=== PATIENT | male | born 1970 | race Caucasian/White ===

== ENCOUNTER 2023-08-31 07:33 | Outpatient (CLI) | payer OTHER, SELFPAY | END 2023-08-31 07:34 | disposition home or self-care (01) | LOC: INJ CL 07:36 | PROVIDERS: PCP Physician Assistant; Visit Provider Family Medicine | DX: M54.16 Radiculopathy, lumbar region (principal); M51.36 Other intervertebral disc degeneration, lumbar region | CPT/HCPCS: 62323; J0702; Q9966 ==

== ENCOUNTER 2023-11-23 13:26 | Outpatient (CLI) | payer BC, SELFPAY | END 2023-11-23 13:27 | disposition home or self-care (01) | LOC: INJ CL 13:27 | PROVIDERS: PCP Physician Assistant; Visit Provider Family Medicine | DX: M54.16 Radiculopathy, lumbar region (principal); M51.36 Other intervertebral disc degeneration, lumbar region | CPT/HCPCS: 64483; J1100; Q9966 ==

== ENCOUNTER 2024-01-08 08:11 | Outpatient (CLI) | payer BC, SELFPAY | END 2024-01-08 08:12 | disposition home or self-care (01) | LOC: INJ CL 08:14 | PROVIDERS: PCP Physician Assistant; Visit Provider Family Medicine | DX: M54.16 Radiculopathy, lumbar region (principal); M51.36 Other intervertebral disc degeneration, lumbar region | CPT/HCPCS: 64483; J0702; Q9966 ==

== ENCOUNTER 2024-05-02 12:02 | Emergency (ER) | payer BC, SELFPAY ==
[2024-05-02 12:04] VITALS: BP 127/59; PULSE 75; RESP 18; TEMP 36.6; O2SAT 97; BMI 50.4
--- NOTE | 2024-05-02 12:16 | ED_ITS ---
HPI - General Adult General Chief complaint: Back Injury/Pain Stated complaint: Back pain Time Seen by Provider: 05/02/24 12:15 History of Present Illness HPI narrative: Known [id number] issue, had an accident in May which made the pain worse, also has sciatic nerve issues. Has had cortisone injection by [facility] here which helped. Has had MRI and CT. Recently at [facility] Rx oral steroid & oxy, oxy just isn't helping. Less pain lying on L side. Hx colon cancer. For surgery was told to lose weight first, has considered gastric bypass. Has some appt to have nerves burned 54-year-old man presenting to the emergency department with complaint of sharp and aching radiating pain through his right hip buttock area down the back of his thigh and feeling like he has stabbed in the right calf with pain continuing to just about the ankle. Underlying lumbar disc problems with repeat accident. History of steroid injections for which were helpful in the past. I did leave briefly. Finds himself lying on his left side to improved discomfort. Has an appointment for evaluation for ablation. No fever. No noted swelling. Reviewing limited records was seen this last week in local emergency department and given some oxycodone along with methylprednisolone. Related Data Home Medications ?Medication ?Instructions ?Recorded ?Confirmed atorvastatin 40 mg tablet 40 mg PO DAILY 05/02/24 05/02/24 celecoxib 200 mg capsule mg PO 05/02/24 glipizide 2.5 mg tablet, extended 2.5 mg PO DAILY 05/02/24 05/02/24 release 24 hr hydroxyzine HCl 25 mg tablet 25 mg PO 3XD 05/02/24 05/02/24 metformin 500 mg tablet 1,000 mg PO BID 05/02/24 05/02/24 methylprednisolone 4 mg tablets in mg DIRECTED 05/02/24 a dose pack oxycodone 5 mg tablet 5 mg PO Q4H PRN pain 05/02/24 05/02/24 pioglitazone 15 mg tablet 15 mg PO DAILY 05/02/24 05/02/24 pioglitazone 30 mg tablet 30 mg PO DAILY 05/02/24 05/02/24 sertraline 25 mg tablet 25 mg PO DAILY 05/02/24 05/02/24 tizanidine 2 mg tablet 4 mg PO Q6H PRN muscle spasm 05/02/24 05/02/24 Previous Rx's ?Medication ?Instructions ?Recorded oxycodone-acetaminophen 5 mg-325 1 - 2 tab PO Q4H PRN pain #12 tabs 05/02/24 mg tablet (Percocet) prednisone 20 mg tablet 20 mg PO DAILY #17 tabs 05/02/24 Allergies Allergy/AdvReac Type Severity Reaction Status Date / Time No Known Drug Allergies Allergy Verified 05/02/24 12:38 Review of Systems Status of ROS: Reports: 6 or more systems reviewed and unremarkable except as noted in History and below PFSH PFS Social History Smoking Status: Never smoker How often do you have a drink containing alcohol: monthly or less AUDIT-C Alcohol total score: 1 Non-prescribed substance use: denies use Exam Narrative: Exam Narrative: Very pleasant. Clearly uncomfortable. Worse with transitions. Prefers to sit or lean to his left. Skin is warm and dry without swelling or erythema. Does not demonstrate great deal of pain to palpation over the low back or buttock. Straight leg raise is positive on the right. Maybe a little hyper reflexive on the right patellar tendon versus the left. Good strength to flexion of the right thigh. Const: Vital Signs, click to edit/add: Vital Signs - 24 hr 05/02/24 12:04 Temperature 97.9 F Pulse Rate [Left P ulse Oximeter] 75 Respiratory Rate 18 Blood Pressure [Ri ght Forearm] 127/59 L Pulse Oximetry 97 Oxygen Delivery Me thod Room Air Documenting provider has reviewed patient's vital signs: yes Course Vital Signs Vital signs: Initial Vital Signs Temperature 97.9 F 05/02/24 12:04 Temperature Source Temporal Artery Scan 05/02/24 12:04 Pulse Rate 75 05/02/24 12:04 Respiratory Rate 18 05/02/24 12:04 Blood Pressure 127/59 L 05/02/24 12:04 Blood Pressure Mean 81 05/02/24 12:04 Blood Pressure Position Left Lateral 05/02/24 12:04 Pulse Oximetry 97 05/02/24 12:04 Oxygen Delivery Method Room Air 05/02/24 12:04 Vital Signs Temperature 97.9 F 05/02/24 12:04 Pulse Rate 75 05/02/24 12:04 Respiratory Rate 18 05/02/24 12:04 Blood Pressure 127/59 L 05/02/24 12:04 Pulse Oximetry 97 05/02/24 12:04 Oxygen Delivery Method Room Air 05/02/24 12:04 Temperature 97.9 F 05/02/24 12:04 Pulse Rate 75 05/02/24 12:04 Respiratory Rate 18 05/02/24 12:04 Blood Pressure 127/59 L 05/02/24 12:04 Pulse Oximetry 97 05/02/24 12:04 Oxygen Delivery Method Room Air 05/02/24 12:04 Medications Administered Medications: Discontinued Medications Generic Name Dose Route Start Last Admin Trade Name Bea PRN Reason Stop Dose Admin Hydromorphone HCl 1 mg 05/02/24 12:31 05/02/24 12:54 Hydromorphone 0.5 Mg/0.5 Ml Inj IVP 05/02/24 12:32 1 mg ONCE ONE Administration Hydroxyzine Pamoate 25 mg 05/02/24 12:31 05/02/24 12:52 Hydroxyzine Pamoate 25 Mg Capsule PO 05/02/24 12:32 25 mg ONCE ONE Administration Ketorolac Tromethamine 30 mg 05/02/24 12:31 05/02/24 12:54 Ketorolac 30 Mg/Ml Inj IVP 05/02/24 12:32 30 mg ONCE ONE Administration Prednisone 60 mg 05/02/24 12:31 05/02/24 12:52 Prednisone 20 Mg Tablet PO 05/02/24 12:32 60 mg ONCE ONE Administration Medical Decision Making MDM Narrative Medical decision making narrative: Extremely uncomfortable here. Known diagnosis. I think it has gotten out of control. No red flags otherwise. Current medication that he has had available including oxycodone was not helping. I would like to break this pain for him. Given injection of hydromorphone and ketorolac. Hydroxyzine orally. Also initiating on prednisone. On reassessment is clearly improved and relieved. Today I do discuss this case with Dr. Rashid who is going to try to get him into an appointment shortly. Mr. Daugherty is not sure he can make it to his appointment for ablation which as I understand actually is more for evaluation. He understands that an injection in his back might set his case back by week or to but he has received temporary relief with injections before and would like to have that done. See patient discharge plan for further discussion Medical Records Medical records reviewed: Yes I reviewed the patient's medical records Discharge Plan Discharge Clinical Impression: Lumbar disc disease with radiculopathy, Pain Patient Disposition: Home w/ Parent or Adult Condition: Improved Additional Instructions: Can continue taking medications as prescribed. The tiny pain pills that you got from the ER are oxycodone 5 mg. The ones you got from your doctor are 5 mg of oxycodone combined with 325 mg of acetaminophen -- one of the brand names of this combination is Percocet. I am prescribing more of these for you. Keep staying well hydrated and taking your senna to keep bowels moving on the days that you are taking oxycodone. Do not forget your fruits and vegetables. You have tizanidine as a ?muscle relaxer? -- tends to make people tired. You have celecoxib as an anti-inflammatory pain medication. You have methylprednisolone as a steroid. I am proposing stopping this and switching to prednisone. I will prescribe some prednisone. All these medications can be combined. You can continue to take up to 1000 mg of acetaminophen per does; just remember that each tablet of Percocet contains 325 mg of acetaminophen. You also have hydroxyzine which you noted was for anxiety. With dosings of oxycodone you can take the hydroxyzine as well; it can help with the effectiveness of opiate pain relief When you get a big flare of pain you may need 10 mg at least in a dosing of oxycodone to settle it down as opposed to the 1 tab I think you were taking. I have discussed your case with Dr. Rashid today. I would anticipate a call from him or his clinic on Sunday to try to schedule a repeat injection or he will try to facilitate you getting it sooner elsewhere. Prescriptions: New prednisone 20 mg tablet 20 mg PO DAILY Qty: 17 1RF Rx Instructions: Take 60 mg daily for 3 days then 40 mg daily for 4 days oxycodone-acetaminophen [Percocet] 5-325 mg tablet 1 - 2 tab PO Q4H PRN (Reason: pain) Qty: 12 0RF No Action celecoxib 200 mg capsule PO pioglitazone 15 mg tablet 15 mg PO DAILY atorvastatin 40 mg tablet 40 mg PO DAILY metformin 500 mg tablet 1,000 mg PO BID tizanidine 2 mg tablet 4 mg PO Q6H PRN (Reason: muscle spasm) glipizide 2.5 mg tablet extended release 24hr 2.5 mg PO DAILY sertraline 25 mg tablet 25 mg PO DAILY hydroxyzine HCl 25 mg tablet 25 mg PO 3XD methylprednisolone 4 mg tablets,dose pack DIRECTED pioglitazone 30 mg tablet 30 mg PO DAILY oxycodone 5 mg tablet 5 mg PO Q4H PRN (Reason: pain) Follow Up/Referrals: Janey Reeder PA-C [Primary Care Provider] - Stand Alone Forms: [facility] Info Instructions
[2024-05-02] MEDS: predniSONE 20 MG TABLET 60 MG PO (12:52)
[2024-05-02] MEDS: hydrOXYzine pamoate 25 MG CAPSULE PO (12:52)
[2024-05-02] MEDS: HYDROmorphone 0.5 mg/0.5 ml inj 1 MG IVP (12:54)
[2024-05-02] MEDS: KETOROLAC 30 MG/ML inj IVP (12:54)
== END 2024-05-02 13:54 | disposition home or self-care (01) ==
PROVIDERS: Emergency Provider Family Medicine; PCP Physician Assistant
DX: M51.16 Intervertebral disc disorders with radiculopathy, lumbar region (principal)
CPT/HCPCS: 96374; 96375; 99284; A9270; J1170; J1885; J7512

== ENCOUNTER 2024-06-10 18:06 | Emergency (ER) | payer BC, SELFPAY ==
[2024-06-10 18:08] VITALS: BP 115/75; PULSE 78; RESP 22; TEMP 36.6; O2SAT 98; BMI 49.1
--- NOTE | 2024-06-10 18:24 | ED_ITS ---
HPI - General Adult General Time Seen by Provider: 18:24 Date Seen: 06/10/24 Chief complaint: Back Injury/Pain Stated complaint: back pain Time Seen by Provider: 06/10/24 18:18 Source: patient and RN notes reviewed Mode of arrival: ambulatory Limitations: no limitations History of Present Illness HPI narrative: This 54-year-old male is coming in with low back pain that is going into his right buttock and somewhat down his right thigh but stops above the knee. He reports that he had surgery on his back on May 22. He was initially evaluated in [place], went to [place] to have the procedure done. It sounds as if he had a radiofrequency ablation done in his lumbar spine. He feels he was originally doing good. Sunday he started to develop some low back pain and pain into the upper buttocks area while standing at work. Sunday he rested mostly. Sunday he rolled in bed and felt like something moved in his back. His back pain became extreme. He feels in the right buttock area and in the right thigh area. He has some numbness on the right thigh but he is not noting any definite motor weakness. He has absolutely no loss of control of bowel or bladder. There is no perineal anesthesia, states scrotum and penis feel normal. He states he feels best when he flexes his knee and puts his heel in the right buttock area. He has had no fevers or chills, no night sweats, has not felt ill. He has had long history of back issues per report. Patient does report he is diabetic when ask him. He has been using some Celebrex. He has 1 Percocet left in his pill bottle, states he originally was just taking half tab and now has went up to a full pill, does not seem like it is completely helping. He also has hydroxyzine. Related Data Home Medications ?Medication ?Instructions ?Recorded ?Confirmed atorvastatin 40 mg tablet 40 mg PO DAILY 05/02/24 06/10/24 celecoxib 200 mg capsule mg PO 05/02/24 glipizide 2.5 mg tablet, extended 2.5 mg PO DAILY 05/02/24 06/10/24 release 24 hr hydroxyzine HCl 25 mg tablet 25 mg PO 3XD 05/02/24 06/10/24 metformin 500 mg tablet 1,000 mg PO BID 05/02/24 06/10/24 pioglitazone 15 mg tablet 15 mg PO DAILY 05/02/24 05/02/24 pioglitazone 30 mg tablet 30 mg PO DAILY 05/02/24 06/10/24 tizanidine 2 mg tablet 4 mg PO Q6H PRN muscle spasm 05/02/24 06/10/24 Previous Rx's ?Medication ?Instructions ?Recorded oxycodone-acetaminophen 5 mg-325 1 - 2 tab PO Q4H PRN pain #12 tabs 05/02/24 mg tablet (Percocet) Allergies Allergy/AdvReac Type Severity Reaction Status Date / Time No Known Drug Allergies Allergy Verified 06/10/24 18:14 Review of Systems Narrative: As per HPI. PFS PFS Social History Smoking Status: Never smoker How often do you have a drink containing alcohol: monthly or less AUDIT-C Alcohol total score: 1 Non-prescribed substance use: denies use Exam Const: Vital Signs, click to edit/add: Vital Signs - 24 hr 06/10/24 18:08 Temperature 97.9 F Pulse Rate [Pulse Oximeter] 78 Respiratory Rate 22 Blood Pressure [Ri ght Upper Arm] 115/75 Pulse Oximetry 98 Oxygen Delivery Me thod Room Air This 54-year-old male is lying on his left side on the bed in exam room 1. He is alert, interactive, no apparent distress but looks like he is uncomfortable. Sclera clear, able speak in complete sentences. He has normal light touch sensation when I palpate throughout his extremities. His strength throughout both of his lower extremities are 5/5 and symmetric through the toes, ankles with both plantar and dorsiflexion, he can fully flex and extend his left knee and has 5/5 strength throughout the knee. He has negative straight leg raising along this right leg. He has no midline tenderness of his spine, note no erythema or any prior site from where he had the radiofrequency ablation done. I cannot palpate any sciatic notch tenderness but body habitus of this patient may preclude that. Neurovascular is intact on examination. Patient did ambulate in. Documenting provider has reviewed patient's vital signs: yes Course Course ED Course: Will obtain CT imaging of his lumbar spine, reviewed with him that I cannot do MRI at this time, there is no tech that is trained in this at this time in the evening. Will get some baseline labs. Will look up his clinic creatinine to see if I can give him a dose of Toradol. Creatinine was 0.81 on 04/16/2020 for with an estimated GFR of greater than 90. Do note that this patient looks to have a history of colon cancer in his chart as well. Thus, I do feel even more inclined to do imaging. Reevaluation(s) Time of Reevaluation #1: 20:08 Reevaluation #1: Patient has his right leg flexed at the knee, foot up against his buttock. Finds this to be a position of comfort. He states the Toradol initially helped but the pain is coming back. Did provide him his CT report, there is no evidence of any complication on this. We reviewed his white count is elevated but C-reactive protein normal. He has had no fevers, there is no site erythema, he is not having any night sweats, does not feel ill. This is simply just inc reased pain. Thus, will initiate prednisone, give him some pain pills as he only has 1 Percocet left, will give 4 tablets of oxycodone, Flexeril and the prednisone course from [facility]. We discussed he absolutely needs to follow up with his primary care provider tomorrow, possibly Dr. Krueger as well as let his pain clinic or the person who performed this procedure know that he is having complications. Vital Signs Vital signs: Initial Vital Signs Temperature 97.9 F 06/10/24 18:08 Temperature Source Temporal Artery Scan 06/10/24 18:08 Pulse Rate 78 06/10/24 18:08 Respiratory Rate 22 06/10/24 18:08 Blood Pressure 115/75 06/10/24 18:08 Blood Pressure Mean 88 06/10/24 18:08 Blood Pressure Position Sitting 06/10/24 18:08 Pulse Oximetry 98 06/10/24 18:08 Oxygen Delivery Method Room Air 06/10/24 18:08 Vital Signs Temperature 97.9 F 06/10/24 18:08 Pulse Rate 78 06/10/24 18:08 Respiratory Rate 22 06/10/24 18:08 Blood Pressure 115/75 06/10/24 18:08 Pulse Oximetry 98 06/10/24 18:08 Oxygen Delivery Method Room Air 06/10/24 18:08 Temperature 97.9 F 06/10/24 18:08 Pulse Rate 78 06/10/24 18:08 Respiratory Rate 22 06/10/24 18:08 Blood Pressure 115/75 06/10/24 18:08 Pulse Oximetry 98 06/10/24 18:08 Oxygen Delivery Method Room Air 06/10/24 18:08 Medications Administered Medications: Discontinued Medications Generic Name Dose Route Start Last Admin Trade Name Freq PRN Reason Stop Dose Admin Ketorolac Tromethamine 30 mg 06/10/24 18:44 06/10/24 19:13 Ketorolac 30 Mg/Ml Inj IM 06/10/24 18:45 30 mg ONCE ONE Administration Medical Decision Making Lab Data Lab results reviewed: Yes I reviewed the patient's lab results Labs: Lab Results 06/10/24 Range/Units 19:23 WBC 17.33 H (4.50-11.00) K/uL RBC 4.78 (4.30-5.90) m/uL Hgb 14.1 (13.5-17.5) gm/dL Hct 43.3 (37.0-53.0) % MCV 91 (80-100) fL MCH 30 (26-34) pg MCHC 33 (32-36) gm/dL RDW Coeff of Billy 13.2 (11.5-15.5) % Plt Count 294 (140-440) K/uL Neut % (Auto) 78.2 H (42.0-72.0) % Lymph % (Auto) 13.7 L (20-44) % Grainger % (Auto) 5.9 (0.0-11.0) % Eos % (Auto) 1.6 (0.0-7.0) % Baso % (Auto) 0.3 (0.0-3.0) % Neut # (Auto) 13.60 H (1.7-7.0) K/uL Lymph # (Auto) 2.40 (0.90-2.90) K/uL Grainger # (Auto) 1.00 H (0.00-0.90) K/UL Eos # (Auto) 0.30 (0.00-0.50) K/uL Baso # (Auto) 0.10 (0.00-0.30) K/uL Abs Immat Gran (auto) 0.10 (0.00-0.30) K/uL Imm/Tot Granulo (auto) 0.3 % Sodium 139 (135-149) mmol/L Potassium 3.3 L (3.6-5.1) mmol/L Chloride 108 (96-114) mmol/L Carbon Dioxide 25 (20-32) mmol/L Anion Gap 6 L (7-15) mEq/L BUN 11 (7-30) mg/dL Creatinine 0.5 (0.5-1.5) mg/dL Estimated Creat Clear 145.21 Estimated GFR 120 ml/min Glucose 150 H (60-115) mg/dL Calcium 8.9 (8.4-10.6) mg/dL C-Reactive Protein 1.1 H (0.5-1.0) mg/dL Imaging Data CT- Other: Attestation: I have reviewed the pertinent imaging results. Radiologist's impression: Patient: JINA MAHARAJ Facility:?[facility] Patient ID:?[id number] Site Patient ID:?[id number]. Site :?[id number] Study:?CT-Spine Lumbar W/O-06/10/2024 7:17:16 PM Ordering Physician:ENEIDA Final Report: INDICATION: Increased back pain. Right leg pain. History of colon cancer. COMPARISON: None. TECHNIQUE: Noncontrast CT lumbar spine. FINDINGS: Mild lumbar curve convex the left. In sagittal plane, trace degenerate retrolisthesis of L5 on S1 measures approximately 4 mm. No acute fractures. No vertebral body loss of height. No fractures of the visualized lower ribs. No sacral fractures. No lytic or sclerotic osseous lesions. Lumbar spondylosis with multilevel disc degeneration facet arthropathy. T12-L1: No spinal canal or neural foraminal narrowing. L1-2: Disc degeneration. Diffuse disc bulge. Mild narrowing of spinal canal. Mild narrowing of bilateral foramina. Prominent ventral bridging osteophyte. L2-3: Disc degeneration. Loss disc height. Vacuum disc. Posterior disc osteophyte complex with [id number] narrowing of spinal canal. Mild narrowing of bilateral foramina. Mild facet arthropathy. L3-4: Posterior disc bulge. Mild narrowing of spinal canal. Mild narrowing of the right neural foramen. No narrowing of the left neural foramen. L4-5: Posterior disc bulge. Combined with ligament flavum and facet hypertrophy, there is moderate severe narrowing of the spinal canal. Potential impingement of the traversing L5 nerve roots bilaterally. Moderate narrowing of bilateral foramina. Moderate facet arthropathy. L5-S1: Disc degeneration posterior disc bulge. No narrowing of spinal canal. No impingement of the traversing S1 nerve roots. Moderate narrowing of bilateral foramina. Mild facet arthropathy. Degenerative changes of the SI joints. No presacral edema inflammation. Scattered vascular calcifications. IMPRESSION: 1. Trace lumbar curve convex the left. Trace degenerative retrolisthesis of L5 on S1. 2. No acute fractures. 3. No lytic or sclerotic osseous lesions. 4. Lumbar spondylosis 5. At L2-3, mild to moderate narrowing of the spinal canal. Mild narrowing of the bilateral neural foramina 6. At L4-5, moderate to severe narrowing of the spinal canal. Potential impingement of the traversing L5 nerve roots. Moderate narrowing of the bilateral neural foramina 7. At L5-S1, moderate narrowing of the bilateral neural foramina Please note that all CT scans at this facility use dose modulation, iterative reconstruction, and/or weight-based dosing when appropriate to reduce radiation dose to as low as reasonably achievable. Dictated by Nilo Swan MD @ 06/10/2024 7:38:25 PM (Electronic Signature) Discharge Plan Discharge Clinical Impression: Lumbar radiculopathy Patient Disposition: Home, Self-Care Condition: Stable Instructions: Lumbar Radiculopathy (ED) Additional Instructions: Start prednisone, 20 mg twice a day x5 days, take with food. This may very well increase your sugars, can talk to her primary care doctor if your sugars are going significantly high. Have written for Flexeril which is a muscle relaxant, do not recommend driving while on this. The Flexeril will be 10 mg up to 3 times a day as needed, 15 prescribed. Will provide a small prescription of oxycodone, follow instructions. With oxycodone, can use Tylenol separately, recommend a 1000 mg 3 times a day for pain. Can still stay on the Celebrex. You need to contact your clinic tomorrow as well as the provider whom performed your procedure. If you do develop fevers, have concerns as outlined in the handout, do recommend re-evaluation. Activity Level: Activity as Tolerated Discharge Diet: Diabetic Prescriptions: No Action celecoxib 200 mg capsule PO pioglitazone 15 mg tablet 15 mg PO DAILY atorvastatin 40 mg tablet 40 mg PO DAILY metformin 500 mg tablet 1,000 mg PO BID tizanidine 2 mg tablet 4 mg PO Q6H PRN (Reason: muscle spasm) glipizide 2.5 mg tablet extended release 24hr 2.5 mg PO DAILY hydroxyzine HCl 25 mg tablet 25 mg PO 3XD pioglitazone 30 mg tablet 30 mg PO DAILY oxycodone-acetaminophen [Percocet] 5-325 mg tablet 1 - 2 tab PO Q4H PRN (Reason: pain) Qty: 12 0RF Follow Up/Referrals: Janey Reeder PA-C [Primary Care Provider] - Stand Alone [facility] Info Instructions
--- NOTE | 2024-06-10 18:44 | CT_ITS ---
Patient: JINA MAHARAJ Facility:?[facility] Patient ID:?[id number] Site Patient ID:?[id number]. Site :?[id number] Study:?CT-Spine Lumbar W/O-06/10/2024 7:17:16 PM Ordering Physician:ENEIDA Final Report: INDICATION: Increased back pain. Right leg pain. History of colon cancer. COMPARISON: None. TECHNIQUE: Noncontrast CT lumbar spine. FINDINGS: Mild lumbar curve convex the left. In sagittal plane, trace degenerate retrolisthesis of L5 on S1 measures approximately 4 mm. No acute fractures. No vertebral body loss of height. No fractures of the visualized lower ribs. No sacral fractures. No lytic or sclerotic osseous lesions. Lumbar spondylosis with multilevel disc degeneration facet arthropathy. T12-L1: No spinal canal or neural foraminal narrowing. L1-2: Disc degeneration. Diffuse disc bulge. Mild narrowing of spinal canal. Mild narrowing of bilateral foramina. Prominent ventral bridging osteophyte. L2-3: Disc degeneration. Loss disc height. Vacuum disc. Posterior disc osteophyte complex with [id number] narrowing of spinal canal. Mild narrowing of bilateral foramina. Mild facet arthropathy. L3-4: Posterior disc bulge. Mild narrowing of spinal canal. Mild narrowing of the right neural foramen. No narrowing of the left neural foramen. L4-5: Posterior disc bulge. Combined with ligament flavum and facet hypertrophy, there is moderate severe narrowing of the spinal canal. Potential impingement of the traversing L5 nerve roots bilaterally. Moderate narrowing of bilateral foramina. Moderate facet arthropathy. L5-S1: Disc degeneration posterior disc bulge. No narrowing of spinal canal. No impingement of the traversing S1 nerve roots. Moderate narrowing of bilateral foramina. Mild facet arthropathy. Degenerative changes of the SI joints. No presacral edema inflammation. Scattered vascular calcifications. IMPRESSION: 1. Trace lumbar curve convex the left. Trace degenerative retrolisthesis of L5 on S1. 2. No acute fractures. 3. No lytic or sclerotic osseous lesions. 4. Lumbar spondylosis 5. At L2-3, mild to moderate narrowing of the spinal canal. Mild narrowing of the bilateral neural foramina 6. At L4-5, moderate to severe narrowing of the spinal canal. Potential impingement of the traversing L5 nerve roots. Moderate narrowing of the bilateral neural foramina 7. At L5-S1, moderate narrowing of the bilateral neural foramina Please note that all CT scans at this facility use dose modulation, iterative reconstruction, and/or weight-based dosing when appropriate to reduce radiation dose to as low as reasonably achievable. Dictated by Nilo Swan MD @ 06/10/2024 7:38:25 PM Signed by:?Nilo Swan MD @06/10/2024 7:38:25 PM (Electronic Signature)
[2024-06-10] MEDS: KETOROLAC 30 MG/ML inj IM (19:13)
[2024-06-10 19:28] LABS: Basophils Percent Auto 0.3 % (0.0-3.0); Eosinophils Percent Auto 1.6 % (0.0-7.0); Hematocrit 43.3 % (37.0-53.0); Hemoglobin* 14.1 gm/dL (13.5-17.5); Immature Granulocytes Pct Auto 0.3 %; Lymphocytes Percent Auto 13.7 % (20-44); Mean Corpuscular HGB Conc 33 gm/dL (32-36); Mean Corpuscular Hemoglobin 30 pg (26-34); Mean Corpuscular Volume 91 fL (80-100); Monocytes Percent Auto 5.9 % (0.0-11.0); Neutrophils Percent Auto 78.2 % (42.0-72.0); Platelet Count* 294 K/uL (140-440); RDW Coefficient of Variation % 13.2 % (11.5-15.5); Red Blood Count 4.78 m/uL (4.30-5.90); White Blood Count* 17.33 K/uL (4.50-11.00)
[2024-06-10 19:31] LABS: Slide Review Reflex No
[2024-06-10 19:43] LABS: Chloride* 108 mmol/L (96-114); Sodium* 139 mmol/L (135-149)
[2024-06-10 19:44] LABS: Potassium* 3.3 mmol/L (3.6-5.1)
[2024-06-10 19:46] LABS: Creatinine* 0.5 mg/dL (0.5-1.5); Est. Creatinine Clearance* 145.21; Estimated Glomerular Filt Rate 120 ml/min
[2024-06-10 19:47] LABS: Anion Gap 6 mEq/L (7-15); Blood Urea Nitrogen* 11 mg/dL (7-30); Calcium* 8.9 mg/dL (8.4-10.6); Carbon Dioxide* 25 mmol/L (20-32); Glucose* 150 mg/dL (60-115)
[2024-06-10 19:50] LABS: C Reactive Protein* 1.1 mg/dL (0.5-1.0)
== END 2024-06-10 20:42 | disposition home or self-care (01) ==
PROVIDERS: Emergency Provider Family Medicine; PCP Physician Assistant
DX: M54.16 Radiculopathy, lumbar region (principal)
CPT/HCPCS: 36415; 72131; 80048; 85025; 86140; 96372; 99284; J1885

== ENCOUNTER 2024-10-28 10:01 | Outpatient (CLI) | payer BC, SELFPAY | END 2024-10-28 10:02 | disposition home or self-care (01) | LOC: INJ CL 10:03 | PROVIDERS: PCP Physician Assistant; Visit Provider Family Medicine | DX: M54.16 Radiculopathy, lumbar region (principal) | CPT/HCPCS: 64483; J1100; Q9966 ==